=== PATIENT | female | born 1980 | race Caucasian/White ===

== ENCOUNTER 2018-08-07 12:23 | Emergency (ER) | payer OTHER ==
[2018-08-07 13:33] LABS: ABS Basophils 0.1 10^3/ul (0-0.2); ABS Eosinophils 0.1 10^3/ul (0-0.6); ABS Lymphocytes 2.3 10^3/ul (1.0-4.8); ABS Monocytes 0.6 10^3/ul (0-0.8); Eosinophil % 1.3 %; Hematocrit 40 % (35-47); Hemoglobin 13.6 g/dL (12.0-16.0); Lymphocyte % 28.7 %; Mean Corpuscular HGB Conc 35 g/dL (31-36); Mean Corpuscular Hemoglobin 31 pg (27-31); Mean Corpuscular Volume 90 fL (80-97); Mean Platelet Volume 7.9 fL (7.4-10.4); Nucleated Red Blood Cells % 0.1; Platelet Count 269 10^3/uL (150-450); Red Blood Count 4.41 10^6 /uL (3.70-4.87); Red Cell Distribution Width 14 % (10-15); White Blood Count 8.2 10^3/uL (3.5-10.8)
[2018-08-07 13:54] LABS: ALT 23 U/L (7-52); AST 18 U/L (13-39); Albumin 4.2 g/dL (3.2-5.2); Albumin/Globulin Ratio 1.2 (1-3); Alkaline Phosphatase 73 U/L (34-104); Anion Gap 7 mmol/L (2-11); BUN/Creatinine Ratio 15.9 (8-20); Blood Urea Nitrogen 10 mg/dL (6-24); CO2 Carbon Dioxide 27 mmol/L (22-32); Calcium 9.5 mg/dL (8.6-10.3); Chloride 104 mmol/L (101-111); EGFR Non-African American 105.8 (>60); Globulin 3.5 g/dL (2-4); Glucose 92 mg/dL (70-100); Sodium 138 mmol/L (135-145); Total Protein 7.7 g/dL (6.4-8.9)
[2018-08-07 13:55] LABS: HCG Pregnancy < 0.60 mIU/mL
[2018-08-07 14:45] LABS: Urine Appearance Cloudy; Urine Bacteria Absent (Absent); Urine Bilirubin Negative (Negative); Urine Blood Negative (Negative); Urine Color Amber; Urine Glucose Negative (Negative); Urine Ketones Negative (Negative); Urine Nitrite Positive (Negative); Urine Protein Negative (Negative); Urine Red Blood Cell 1+(3-5/hpf) (Absent); Urine Specific Gravity 1.009 (1.010-1.030); Urine Squamous Epithelial Cell Present (Absent); Urine Urobilinogen Negative (Negative); Urine White Blood Cell 3+(>20/hpf) (Absent)
[2018-08-07] MEDS ORDERED: NS 0.9% 1000 ML** 1,000 ML IV ONE (15:26)
[2018-08-07] MEDS ORDERED: Ondansetron INJ* 2 MG/ML VIAL IV ONE (15:27)
[2018-08-07] MEDS ORDERED: cefTRIAXone(*) 1 GM in NS 0.9% 50 ML* 50 ML IVPB ONE (15:28)
--- NOTE | 2018-08-07 16:02 | ED ---
GI/ HPI - HPI Summary HPI Summary: 38-year-old female presents with back pain for the past 2 weeks. States it is starting to go down her legs. She has a history of kidney stones states feels similar. She states last night she developed dysuria urgency or frequency. She states she had a low-grade fever. Admits to nausea and no vomiting. No diarrhea constipation. No blood in her stool. No cough. No chest pain shortness of breath. No injury. No saddle anesthesia. No loss of bowel or bladder. - History of Current Complaint Chief Complaint: EDFlankPain Time Seen by Provider: 08/07/18 15:10 Stated Complaint: BACK PAIN WITH LEG PAIN PER PT Pain Intensity: 5 - Allergy/Home Medications Allergies/Adverse Reactions: Allergies Allergy/AdvReac Type Severity Reaction Status Date / Time No Known Allergies Allergy Verified 08/07/18 12:25 PMH/Surg Hx/FS Hx/Imm Hx Endocrine/Hematology History: Denies: Hx Anticoagulant Therapy Respiratory History: Denies: Hx Asthma Infectious Disease History: No Infectious Disease History: Denies: Traveled Outside the [place] in Last 30 Days - Family History Known Family History: Negative: Renal Disease - Social History Alcohol Use: None Substance Use Type: Reports: None Smoking Status (MU): Never Smoked Tobacco Review of Systems Negative: Fever Negative: Chest Pain Negative: Shortness Of Breath Positive: Abdominal Pain, Nausea. Negative: Vomiting, Diarrhea Positive: dysuria, flank pain All Other Systems Reviewed And Are Negative: Yes Physical Exam Triage Information Reviewed: Yes Vital Signs On Initial Exam: Initial Vitals Temp Pulse Resp BP Pulse Ox 97.8 F 73 16 169/89 99 08/07/18 12:26 08/07/18 12:26 08/07/18 12:26 08/07/18 12:26 08/07/18 12:26 Vital Signs Reviewed: Yes Appearance: Positive: Well-Appearing Skin: Positive: Warm, Dry Head/Face: Positive: Normal Head/Face Inspection Eyes: Positive: Normal, EOMI, NAHID, Conjunctiva Clear ENT: Positive: Normal ENT inspection, Pharynx normal, TMs normal Respiratory/Lung Sounds: Positive: Clear to Auscultation, Breath Sounds Present Cardiovascular: Positive: Normal, RRR Abdomen Description: Positive: Nontender, Soft, CVA Tenderness (R) Bowel Sounds: Positive: Present Musculoskeletal: Positive: Normal Neurological: Positive: Normal Psychiatric: Positive: Normal Diagnostics - Vital Signs Vital Signs Temp Pulse Resp BP Pulse Ox 08/07/18 15:47 98.3 F 61 14 132/75 96 08/07/18 14:10 97.8 F 67 18 156/99 98 08/07/18 12:26 97.8 F 73 16 169/89 99 - Laboratory Lab Results: Lab Results 08/07/18 08/07/18 08/07/18 Range/Units 13:18 13:18 14:12 WBC 8.2 (3.5-10.8) 10^3/uL RBC 4.41 (3.70-4.87) 10^6 /uL Hgb 13.6 (12.0-16.0) g/dL Hct 40 (35-47) % MCV 90 (80-97) fL MCH 31 (27-31) pg MCHC 35 (31-36) g/dL RDW 14 (10-15) % Plt Count 269 (150-450) 10^3/uL MPV 7.9 (7.4-10.4) fL Neut % (Auto) 61.9 % Lymph % (Auto) 28.7 % [place] % (Auto) 7.3 % Eos % (Auto) 1.3 % Baso % (Auto) 0.8 % Absolute Neuts (auto) 5.0 (1.5-7.7) 10^3/ul Absolute Lymphs (auto) 2.3 (1.0-4.8) 10^3/ul Absolute Monos (auto) 0.6 (0-0.8) 10^3/ul Absolute Eos (auto) 0.1 (0-0.6) 10^3/ul Absolute Basos (auto) 0.1 (0-0.2) 10^3/ul Absolute Nucleated RBC 0.0 10^3/ul Nucleated RBC % 0.1 Sodium 138 (135-145) mmol/L Potassium 4.0 (3.5-5.0) mmol/L Chloride 104 (101-111) mmol/L Carbon Dioxide 27 (22-32) mmol/L Anion Gap 7 (2-11) mmol/L BUN 10 (6-24) mg/dL Creatinine 0.63 (0.51-0.95) mg/dL Est GFR ( Amer) 128.0 (>60) Est GFR (Non-Af Amer) 105.8 (>60) BUN/Creatinine Ratio 15.9 (8-20) Glucose 92 (70-100) mg/dL Calcium 9.5 (8.6-10.3) mg/dL Total Bilirubin 0.70 (0.2-1.0) mg/dL AST 18 (13-39) U/L ALT 23 (7-52) U/L Alkaline Phosphatase 73 (34-104) U/L Total Protein 7.7 (6.4-8.9) g/dL Albumin 4.2 (3.2-5.2) g/dL Globulin 3.5 (2-4) g/dL Albumin/Globulin Ratio 1.2 (1-3) Lipase 12 (11.0-82.0) U/L Beta HCG, Quant < 0.60 mIU/mL Urine Color [place] Urine Appearance Cloudy Urine pH 7.0 (5-9) Ur Specific [place] 1.009 L (1.010-1.030) Urine Protein Negative (Negative) Urine Ketones Negative (Negative) Urine Blood Negative (Negative) Urine Nitrate Positive A (Negative) Urine Bilirubin Negative (Negative) Urine Urobilinogen Negative (Negative) Ur Leukocyte Esterase 3+ A (Negative) Urine WBC (Auto) 3+(>20/hpf) A (Absent) Urine RBC (Auto) 1+(3-5/hpf) A (Absent) Ur Squamous Epith Cells Present A (Absent) Urine Bacteria Absent (Absent) Urine Glucose Negative (Negative) Result Diagrams: 08/07/18 13:18 08/07/18 13:18 Lab Statement: Any lab studies that have been ordered have been reviewed, and results considered in the medical decision making process. - CT abd CT Interpretation Completed By: Radiologist Summary of CT Findings: IMPRESSION: No obstructive uropathy. Right ovarian cyst measuring up to 2.9 cm. Re-Evaluation - Re-Evaluation First Eval Re-Evaluation Time: 17:12 Change: Improved Comment: feeling better, discussed results GIGU Course/Dx - Course Course Of Treatment: 38-year-old female presents with back pain for the past 2 weeks. States it is starting to go down her legs. She has a history of kidney stones states feels similar. She states last night she developed dysuria urgency or frequency. She states she had a low-grade fever. Admits to nausea and no vomiting. No diarrhea constipation. No blood in her stool. No cough. No chest pain shortness of breath. No injury. No saddle anesthesia. No loss of bowel or bladder. On exam has tenderness over right flank. neg SLR. neurovascular intact. CRP normal. Urine shows UTI. CT shows no stones but does show a right ovarian cysts. Will have patient follow up with urology with hx kidney stones. also told follow up with ob. Will place patient on cipro. Patient understands and agrees with the plan. - Diagnoses Differential Diagnoses - Female: Pyelonephritis, Urinary Tract Infection, Ureteral Calculi Provider Diagnoses: UTI (urinary tract infection), Ovarian cyst Discharge - Sign-Out/Discharge Documenting (check all that apply): Patient Departure Patient Received Moderate/Deep Sedation with Procedure: No - Discharge Plan Condition: Good Disposition: HOME Prescriptions: Ciprofloxacin TAB* [Cipro 500 MG TAB*] 500 mg PO BID #10 tab Patient Education Materials: Ovarian Cyst (ED), Urinary Tract Infection in Women (ED) Referrals: [facility] [Outside] Additional Instructions: establish care with tear down man to follow up Take tyenlol or ibuprofen every 6 hours as needed for pain Take Cipro twice a day for 5 days Establish care with primary Return to ED if develop fever or any new or worsening symptoms - Billing Disposition and Condition Condition: GOOD Disposition: Home
[2018-08-07 16:36] LABS: C Reactive Protein 4.56 mg/L (<8.01)
[2018-08-07 17:51] VITALS: BP 151/96
--- NOTE | 2018-08-10 05:27 | PN ---
Progress Note - Progress Note Date of Service: 08/07/18 Note: Urine culture final grew staph aureus possibly contaminant patient was placed on cipro this was not tested for sensitivity likely will cover nothing further is required
== END 2018-08-07 17:53 | disposition home or self-care (01) ==
LOC: ED 12:23
DX: N39.0 Urinary tract infection, site not specified (principal); N83.201 Unspecified ovarian cyst, right side
CPT/HCPCS: 36415; 74176; 80053; 81003; 81015; 83690; 84702; 85025; 86140; 87077; 87086; 87186; 96361; 96365; 96375; 99283; J0696; J2405